=== PATIENT | female | born 1975 | race Caucasian/White ===

== ENCOUNTER 2019-05-01 02:05 | Emergency (ER) | payer MEDICAID ==
[2019-05-01 03:07] VITALS: TEMP 98.4; O2SAT 99
[2019-05-01 03:28] VITALS: BP 96/59
== END 2019-05-01 03:28 | disposition short-term general hospital (02) ==
LOC: ER 02:05
DX: I46.9 Cardiac arrest, cause unspecified (principal)
CPT/HCPCS: 36415; 36600; 71045; 80053; 82550; 82553; 82803; 82805; 83605; 83735; 84484; 85025; 85610; 85730; 93005; 94002; 94770; J7030